=== PATIENT | female | born 1970 | race Caucasian/White ===

== ENCOUNTER → 2018-12-28 16:39 | Outpatient (CLI) | payer BC, SELFPAY ==
--- NOTE | 2018-12-28 16:59 | CT_ITS ---
We are attempting to reach FALGUNI VARELA NP to discuss findings. An addendum with communication details will be sent when the communication is complete. STUDY: CT ABDOMEN AND PELVIS WITH CONTRAST REASON FOR EXAM: Female, 48 years old. Epigastric pain. RADIATION DOSAGE (If Supplied By Facility): CTDIvol = ( 14.79 ) mGy, DLP = ( 840.85 ) mGycm TECHNIQUE: Transaxial images were obtained from the dome of the diaphragm to the symphysis pubis with oral contrast. Isovue 300 100ML IV/Oral was administered. Sagittal and coronal images were reconstructed. Individualized dose optimization techniques were used for this CT. COMPARISON: None. FINDINGS: The visualized lung bases are unremarkable. The visualized portions of the heart are within normal limits. Normal liver. Normal gallbladder and extrahepatic biliary system. Normal spleen. Normal pancreas. Normal bilateral adrenal glands. Normal right kidney. Normal left kidney. Normal visualized stomach. Normal small intestine. Normal colon. There is a tubular, thick-walled appendix (>7mm), consistent with acute appendicitis, series 2 images 80/124 through 84/124. There is a calcified appendicolith, series 2 image 81/124. Normal abdominal aorta. Normal inferior vena cava. Normal retroperitoneum. Normal urinary bladder. Normal visualized uterus. There are adnexal follicles. There is no free fluid in the abdomen or pelvis. Normal abdominal wall. Mild degenerative change of the spine. CT/Abdomen/Pelvis WITH Contrast IMPRESSION: Calcified appendicolith within mildly enlarged appendix consistent with acute appendicitis. No obstruction or abscess. Electronically Signed: Alexis Thurman MD at 20:06 EDT , Service support ,
== END ==
PROVIDERS: Family Provider Student in an Organized Health Care Education/Training Program; PCP Student in an Organized Health Care Education/Training Program
DX: R10.84 Generalized abdominal pain (principal)
CPT/HCPCS: 74177; Q9967

== ENCOUNTER 2018-12-28 20:18 | Observation (INO) | payer BC, SELFPAY ==
[2018-12-28 20:19] VITALS: BP 156/94; PULSE 77; RESP 18; TEMP 36.7; O2SAT 100; BMI 33.8
[2018-12-28] MEDS: Morphine 4 MG/ML Syringe IV (20:49)
[2018-12-28] MEDS: Ondansetron 4 MG/2 ML Vial IV (20:50)
[2018-12-28] MEDS: 0.9% Normal Saline 1,000 ML 1000 ML IV (20:50)
[2018-12-28 21:09] LABS: Absolute Lymphocyte Count 3.23 X10^3/ul (0.83-4.51); Basophil# 0.04 X10^3/uL; Basophil% 0.4 % (0-1); Eosinophil# 0.15 X10^3/uL; Eosinophils% 1.7 % (0-5); Hematocrit 30.6 % (37-47); Hemoglobin 9.5 g/dl (12.0-15.0); Lymphocyte # 3.23 X10^3/ul (4.0); Lymphocyte % 36.1 % (19-41); Mean Corpuscular Hgb 24.6 pg (27.0-32.0); Mean Corpuscular Volume 79.3 fL (81-99); Mean Platelet Vol. 8.8 fl (6.2-12.0); Monocyte# 0.48 X10^3/uL; Monocyte% 5.4 % (0-10); Neutrophil # 5.04 X10^3/uL (2.7-7.7); Neutrophil % 56.3 % (47-70); POSITIVE COUNT NO; POSITIVE DIFFERENTIAL NO; POSITIVE MORPHOLOGY NO; Platelet Count 241 K/mm3 (150-450); RBC Distribution Width CV 15.7 % (11.6-14.6); RBC Distribution Width SD 44.9 fl (35.1-43.9); Red Blood Count 3.86 M/mm3 (4.2-5.4)
[2018-12-28 21:26] LABS: ALB/GLOB Ratio 0.9 RATIO (0.9-2.4); AST(SGOT) 12 U/L (15-37); Alanine Aminotransfer ALT/SGPT 15 U/L (13-56); Albumin, Serum 3.4 g/dL (3.2-5.0); Alkaline Phosphatase 78 U/L (45-117); Anion Gap 5 (5-15); BUN 10 mg/dL (7-18); BUN/Creat Ratio 11.3 RATIO (10-20); Chloride 107 mmol/L (98-107); Creatinine, Serum 0.88 mg/dL (0.55-1.02); EST Glomerular Filtration Rate 72 mL/min (>60); Est Glom Filt Rate - Afr Amer 88 mL/min (>60); Estimated Creatinine Clearance 63.97 ml/min; Globulin 3.6 g/dL (2.2-4.2); Glucose 126 mg/dL (74-106); Lipase 108 U/L (73-393); Sodium Level 140 mmol/L (136-145)
--- NOTE | 2018-12-28 22:00 | ED.VISSUMM ---
- ER Visit Summary Date of Service: 12/28/18 Chief Complaint: Abdominal pain History of Present Illness: The patient is a [address] Romero. She reports that she has abdominal pain that began yesterday. It started in the epigastric region and is gradually moved down to her lower abdomen. She describes as a cramping pain is 10/10 at worst and 4-10 currently. Is worsened by movement and relieved by remaining still. Denies any nausea or vomiting. She reports she has had one episode of diarrhea, but this is after drinking the contrast for the CT scan. There was no blood in her stools or black tarry stools. No dysuria or frequency. She is on her menstrual period now. Patient was seen by a physician at [facility] and had a CT abdomen/pelvis with p.o. and IV contrast ordered. This showed that she had acute appendicitis and she was transferred to the emergency department. Physical Examination: Vitals: Stable. Afebrile. General: Well-nourished and well-developed. Head: Normocephalic atraumatic. Neck: Supple, no lymphadenopathy. No JVD. Nontender. Cardiovascular: Regular rate and rhythm. No murmurs. Respiratory: No respiratory distress. Clear to auscultation bilaterally. Abdominal: Soft, mild diffuse tenderness palpation moderate tenderness palpation in the right lower quadrant, nondistended, normal bowel sounds. No guarding, rebound, or peritoneal signs. Back: Nontender. Extremities: Nontender, no edema. Skin: Normal color, no rash. Neurologic: Alert and oriented ?3. Cranial nerves II through XII are intact. Normal strength and sensation. Psych: Normal affect. Test Results: CBC is remarkable for an H&H 9.5 and 30.6. Chem-7 shows a potassium 3.0 glucose 126. LFTs show an AST of 12. Lipase is normal. CT the abdomen pelvis with p.o. and IV contrast obtained prior to arrival shows a calcified appendicolith within a mildly enlarged appendix consistent with acute appendicitis. Emergency Department Course and Treatment: Patient reports that she ate approximately 45 minutes prior to coming in the emergency department. She was treated with Zofran, morphine, and Zosyn IV. She is resting comfortably. Treatment Plan: Patient was discussed with Dr. Almonte. Given the fact that she ate so recently she will be admitted to the hospital overnight and taken to the operating room in the morning. Patient understands this and is happy with this plan. Disposition: Admitted in stable condition peer Impression: 1. Appendicitis. This note was generated with NXE dictation software. It may contain incorrect words, spelling, and punctuation that were not noted in review of the chart prior to signing ED Disposition - Plan for ED Patient: Disposition: Acute Care Hospital [facility]
[2018-12-28 22:06] VITALS: BMI 33.1; BMI 33.2
[2018-12-28 22:25] VITALS: BP 127/69; PULSE 84; RESP 16; TEMP 36.6; O2SAT 97
[2018-12-28] MEDS: Lactated Ringers 1,000 ML 125 ML IV (22:31)
[2018-12-29] VITALS (11 sets, daily range): BP systolic 106–144; BP diastolic 64–79; PULSE 65–94; RESP 14–18; TEMP 36.4–37.1; O2SAT 97–100; BMI 33.1
[2018-12-29 04:24] LABS: Internal QC Validated? YES +Cl - CLEAR BKGD; Pregnancy, Urine Negative Negative
--- NOTE | 2018-12-29 05:56 | PCM.HP.BLA ---
History and Physical Date of Admission: 12/29/18 Chief Complaint: abdominal pain History of Present Illness: 48 y/o WF presents with abdominal pain. Complaint of generalized abdominal tenderness and bloating. Had pain beginning around Tuesday and then continuing and therefore presented to urgent care yesterday. Was sent to [facility] for abdominal CT scan, and found to have enlarged appendix. Was told to go to ED but on the way stopped at [employer] to eat. Presented to [facility] ED with complaint of above. Slight nausea, no emesis. Afebrile. Normal WBC with normal differential. CT scan - tubular thick walled appendix > 7mm with appendicolith Past Medical History: history of migraine headaches - but lessened in past few years Past Surgical History: Tonsillectomy Past Injuries: denies head injuries, denies history of fractures Medications: ibuprofen prn Allergies: axithromycin, cefdinir, cephalexin (all triggers migraines) Social history: TOB use denies Review of Systems: General - denies fevers, denies anorexia Cardiovascular denies chest pain, denies history of heart attack Pulmonary denies shortness of breath, denies coughing up blood Gastrointestinal as per HPI, denies blood in stools Neurological denies seizures,denies history of stroke Genitourinary denies burning with urination, denies blood in urine Hematological denies spontaneous\prolonged bleeding Skin denies open non healing wounds Musculoskeletal denies history of fractures Endocrine denies diabetes Psychological denies hallucinations Physical examination: Vital signs Temp 98.1F BP 156/94 HR 84 RR 16 General WD/WN WF in no apparent distress, alert and oriented, not septic appearing HEENT Normocephalic. EOM intact with sclera clear and no icterus noted. Neck is supple with no jugular venous distention noted. Trachea is midline. Lungs no labored breathing noted, such as retractions. No cough heard. Heart regular. Abdomen soft and patient states that she feels bloated throughout, tender in right lower quadrant with rebound, but also generalized tenderness, decreased bowel sounds Extremities no calf tenderness noted. No pitting edema noted. Genitourinary/Rectal deferred Skin normal skin integrity. Neurological non focal Psychological normal affect, patient is calm and appropriate Impression: enlarged appendix by CT scan Discussion/Plan: I have discussed the above with the patient. I have offered the patient the procedure of laparoscopic appendectomy I have explained the procedure to the patient. I have counseled the patient as to the risks of the procedure, including but not limited to: infection, bleeding, injury to any blood vessels/nerves, scar tissue, injury to any intrabdominal organs, injury to kidney/ureters, injury to bowel/bladder, intraabdominal abscess/bleeding, hernias at incisional sites, wound infections, possible open procedure, complications of anesthesia, postoperative pneumonia/cardiac problems/blood clots etc. the patient understands. The patient agrees to proceed I have answered all questions to the patient?s satisfaction and the patient has no further questions.
--- NOTE | 2018-12-29 05:59 | HP.PCM_ITS ---
History and Physical Date of Admission: 12/29/18 Chief Complaint: abdominal pain History of Present Illness: 48 y/o WF presents with abdominal pain. Complaint of generalized abdominal tenderness and bloating. Had pain beginning around Tuesday and then continuing and therefore presented to urgent care yesterday. Was sent to [facility] for abdominal CT scan, and found to have enlarged appendix. Was told to go to ED but on the way stopped at [employer] to eat. Presented to [facility] ED with complaint of above. Slight nausea, no emesis. Afebrile. Normal WBC with normal differential. CT scan - tubular thick walled appendix > 7mm with appendicolith Past Medical History: history of migraine headaches - but lessened in past few years Past Surgical History: Tonsillectomy Past Injuries: denies head injuries, denies history of fractures Medications: ibuprofen prn Allergies: axithromycin, cefdinir, cephalexin (all triggers migraines) Social history: TOB use denies Review of Systems: General - denies fevers, denies anorexia Cardiovascular denies chest pain, denies history of heart attack Pulmonary denies shortness of breath, denies coughing up blood Gastrointestinal as per HPI, denies blood in stools Neurological denies seizures,denies history of stroke Genitourinary denies burning with urination, denies blood in urine Hematological denies spontaneous\prolonged bleeding Skin denies open non healing wounds Musculoskeletal denies history of fractures Endocrine denies diabetes Psychological denies hallucinations Physical examination: Vital signs Temp 98.1F BP 156/94 HR 84 RR 16 General WD/WN WF in no apparent distress, alert and oriented, not septic appearing HEENT Normocephalic. EOM intact with sclera clear and no icterus noted. Neck is supple with no jugular venous distention noted. Trachea is midline. Lungs no labored breathing noted, such as retractions. No cough heard. Heart regular. Abdomen soft and patient states that she feels bloated throughout, tender in right lower quadrant with rebound, but also generalized tenderness, decreased bowel sounds Extremities no calf tenderness noted. No pitting edema noted. Genitourinary/Rectal deferred Skin normal skin integrity. Neurological non focal Psychological normal affect, patient is calm and appropriate Impression: enlarged appendix by CT scan Discussion/Plan: I have discussed the above with the patient. I have offered the patient the procedure of laparoscopic appendectomy I have explained the procedure to the patient. I have counseled the patient as to the risks of the procedure, including but not limited to: infection, bleeding, injury to any blood vessels/nerves, scar tissue, injury to any intrabdominal organs, injury to kidney/ureters, injury to bowel/bladder, intraabdominal abscess/bleeding, hernias at incisional sites, wound infections, possible open procedure, complications of anesthesia, postoperative pneumonia/cardiac problems/blood clots etc. the patient understands. The patient agrees to proceed I have answered all questions to the patient?s satisfaction and the patient has no further questions.
--- NOTE | 2018-12-29 06:00 | APP_PTH ---
PATIENT: ANDI BRANNON LOC: MS3 U#:[id number] AGE/SX: 48/F ROOM: MS309 RE12/28/[address]: Dr. Nadia Almonte MD : 1970 BED: 1 DIS: 12/30/2018 SPEC #: [id number] RECD: 12/29/18 07:32 STATUS: AMY REQ #: [id number] ANNALISE: 12/29/18 06:[address]: Nadia Almonte DEPT: SURGICAL PATHOLOGY RECD BY: Donovan Valentine ENTERED: 12/29/18 10:04 SP TYPE: APPENDIX OTHR DR: Dr. Brien Romero, Tissues: Appendix, NOS Procedures: Surgery Specimen Level III HEADER OPERATION: Laparoscopic appendectomy PRE-OP DIAGNOSIS: Abnormal abdominal pain, abnormal CT scan TISSUE SUBMITTED: Appendix MICROSCOPIC DIAGNOSIS Appendix, appendectomy: No evidence of appendicitis. AM:samina 01/02/19 MICROSCOPIC DESCRIPTION Slides are reviewed. GROSS DESCRIPTION Received is one container labeled with the patient's name and designated appendix. The specimen consists of a vermiform appendix measuring 4.5 cm in length and 0.7 cm in diameter. No gross perforations are evident. Serial sections reveal a patent lumen. Tar Worker sections are submitted in two cassettes. / AM:samina 12/29/18 TC:5 CPT: 82411
[2018-12-29] MEDS: Bupiv/Epi 0.25% 30 ML Vial (06:55)
--- NOTE | 2018-12-29 07:06 | OP.PCM_ITS ---
Report of Operation Date of Procedure: 12/29/18 Pre-Operative Diagnosis: abnormal appendix by CT scan, abdominal pain Post-Operative Diagnosis: blood in peritoneal cavity, presumed endometriosis, abnormal appendix Surgery/Procedure Performed:: laparoscopic appendectomy Description of Surgical Findings:: blood in peritoneal cavity mostly in the pelvis, noted to have ovarian cystic disease - possible ruptured ovarian cyst, possible endometrial deposits, distended abnormal appendix Type of Anesthesia:: General Anesthesiologist: Ken Reid Specimen's removed: appendix Estimated Blood Loss (mL): < 10 Fluids Replaced: 1100 ml RL Description of Procedure: After informed consent was obtained, the patient was brought into the operating room and placed in the supine position on the operating table. Appropriate time out protocol was followed. The patient was then placed under general anesthes ia. The patient?s abdomen was then prepped with a sterile surgical skin preparation and sterile surgical drapes were placed. The infraumbilical skin fold was grasped with penetrating clamps and the skin and subcutaneous tissues were infiltrated with 0.5% marcaine with epinephrine. A skin incision was then made. A Veress needle was then inserted into the intraabdominal cavity and checked to be in the proper position with a normal saline drop test. A CO2 pneumoperitoneum was then created. Once this was achieved, the Veress needle was removed and a 5 mm trocar was placed in its stead. A 5 mm laparoscope was then inserted into the trocar. Careful examination of the intraabdominal contents was then done. There was no evidence of injury to any internal organs from placement of the Veress needle or the trocar. Under direct visualization, a 12mm suprapubic trocar and a 5mm left lower quadrant trocar was then placed into the intraabdominal cavity. The skin and subcutaneous tissues at these sites were first infiltrated with 0.5% marcaine with epinephrine. Of note, there was old blood throughout the intraabdominal cavity noted. This seemed to emanate from the pelvis. Therefore careful attention was made to evaluate the gynecological organs. There was enlarged veins noted of the pelvis. There were ovarian cysts present. There was an area of the left ovary that seemed to be a sight of old bleeding, but no active bleeding was noted. There were small deposits that appeared to be endometriosis. There was scar tissue in the cul de sac. No signs of active bleeding was noted throughout the abdomen. Attention was then directed to the right lower quadrant. The appendix was visualized. The mesentery of the appendix was taken down by cauterizing the tissue from the free edge to the base of the appendix with the Harmonic scalpel. Once the base of the appendix was freed of surrounding tissues, then the linear gastrointestinal stapling device was brought into the abdominal cavity via the 12mm port and placed across the base of the appendix. The stapling device was fired, thus stapling across the base of the appendix and transecting it simultaneously. The appendix was then placed in an Endobag and this was brought out through the suprapubic trocar. The appendix was then forwarded to Pathology for analysis. The appendiceal stump was carefully examined. There was no evidence of any active bleeding or fecal leakage. The surrounding tissues were also examined and there was no evidence of any active bleeding or fecal/bile leakage. The intraabdominal cavity was examined and there was no evidence of further inflammation or tissue abnormality. Attention was directed to the stomach to rule out perforated ulcer - none was identified. There was no evidence of any peritoneal fluid. The CO2 pneumoperitoneum was released and all trocars were removed intact. The suprapubic fascia was reapproximated with a figure-of-8 vicryl suture. All skin incisions were reapproximated with monocryl suture. Cavilon and steristrips were applied to reinforce skin closure and proper sterile dressings were placed. The patient was then extubated and brought to the Recovery Room in stable condition. - Complications none noted - Admit VTE Documentation VTE Present on Admission: Yes VTE Mechan Device Prophylaxis: SCD's
--- NOTE | 2018-12-29 07:21 | PCM.DC.APPY ---
Discharge Diet: No Restrictions - avoid carbonated beverages for a couple of days drink plenty of fluids Discharge Activity: Return to Normal Activity, May not drive while taking narcotic pain medications. Lifting Restrictions: no lifting greater than 20 pounds for 2 weeks Additional Activity Instructions:: ambulation is encouraged Call your doctor if your incision/area has: Continuous Slow Oozing, Foul Smelling Discharge Call your doctor if you observe: Fever of 101 or Higher Additional Dressing/Incision Instructions:: Leave dressings intact. May get wet in shower. Do not soak - no tub baths/swimming Medications to take at Discharge Ibuprofen 400 mg PO PRN PRN 12/28/18 Magnesium 250 mg PO BID 12/28/18 Hydrocodone/Acetaminophen [[place] 5-325 Tablet] 1 ea PO Q8H PRN 5 Days #15 tab 12/29/18 Allergies/Adverse Reactions: Allergies azithromycin Adverse Reaction (Verified 12/28/18 20:24) Other cefdinir Adverse Reaction (Verified 12/28/18 20:24) Other cephalexin [From Keflex] Adverse Reaction (Verified 12/28/18 20:24) Other The following prescriptions were given: Hydrocodone/Acetaminophen [[place] 5-325 Tablet] 1 ea PO Q8H PRN 5 Days #15 tab PRN Reason: Mod-Severe Pain (4-10/10) Primary Care Physician: Brien Romero DO [Primary Care Provider] - Test Results: Test results from this visit will be discussed in further detail at your follow-up appointment, if applicable. Please Follow Up With: Nadia Almonte MD - call When: to be seen in a week, please call for date and time, thank you
--- NOTE | 2018-12-29 07:24 | DCINST_ITS ---
Discharge Diet: No Restrictions - avoid carbonated beverages for a couple of days drink plenty of fluids Discharge Activity: Return to Normal Activity, May not drive while taking narcotic pain medications. Lifting Restrictions: no lifting greater than 20 pounds for 2 weeks Additional Activity Instructions:: ambulation is encouraged Call your doctor if your incision/area has: Continuous Slow Oozing, Foul Smelling Discharge Call your doctor if you observe: Fever of 101 or Higher Additional Dressing/Incision Instructions:: Leave dressings intact. May get wet in shower. Do not soak - no tub baths/swimming Medications to take at Discharge Ibuprofen 400 mg PO PRN PRN 12/28/18 Magnesium 250 mg PO BID 12/28/18 Hydrocodone/Acetaminophen [[place] 5-325 Tablet] 1 ea PO Q8H PRN 5 Days #15 tab 12/29/18 Allergies/Adverse Reactions: Allergies azithromycin Adverse Reaction (Verified 12/28/18 20:24) Other cefdinir Adverse Reaction (Verified 12/28/18 20:24) Other cephalexin [From Keflex] Adverse Reaction (Verified 12/28/18 20:24) Other The following prescriptions were given: Hydrocodone/Acetaminophen [[place] 5-325 Tablet] 1 ea PO Q8H PRN 5 Days #15 tab PRN Reason: Mod-Severe Pain (4-10/10) Primary Care Physician: Brien Romero DO [Primary Care Provider] - Test Results: Test results from this visit will be discussed in further detail at your follow- up appointment, if applicable. Please Follow Up With: Nadia Almonte MD - call When: to be seen in a week, please call for date and time, thank you
--- NOTE | 2018-12-29 07:42 | PCA ---
PT IN OR
[2018-12-29] MEDS: Lactated Ringers 1,000 ML 125 ML IV ×2 (08:52→16:36)
[2018-12-29] MEDS: HYDROcodone Bitartrate/Apap 5/325 Tablet PO ×2 (10:50→14:50)
[2018-12-29] MEDS: Ondansetron 4 MG/2 ML Vial IV (14:48)
--- NOTE | 2018-12-29 19:50 | PCM.PN.SRG ---
Subjective: Patient is s/p laparoscopic appendectomy earlier this morning, Planned discharge later today, but when evaluated on my afternoon rounds, patient stated that she wanted to stay overnight - she felt too uncomfortable to go home - Physical Exam General: Alert, Oriented x3 Oral: Moist Mucosa Lungs: Normal air movement Abdomen: Soft - dressings intact Vital Signs Temp Pulse Resp BP Pulse Ox 98.1 F 77 16 116/75 100 12/29/18 16:19 12/29/18 16:19 12/29/18 16:19 12/29/18 16:19 12/29/18 16:19 Oxygen Flow Rate (L/min) 2 Oxygen Delivery Method Room Air Weight: 86.3 kg Body Mass Index (BMI) 33.1 Intake and Output for Last 24 Hours 12/27/18 12/28/18 12/29/18 23:59 23:59 23:59 Intake Total 4901 / 4901 Output Total 700 / 700 Balance 4201 / 4201 Laboratory Tests Past 24 Hrs 12/28/18 12/28/18 12/29/18 21:01 21:01 04:06 WBC 9.0 RBC 3.86 L Hgb 9.5 L Hct 30.6 L MCV 79.3 L MCH 24.6 L MCHC 31.0 L RDW 15.7 H RDW Differential 44.9 H Plt Count 241 MPV 8.8 Immature Gran % (Auto) 0.100 Neut % (Auto) 56.3 Lymph % (Auto) 36.1 [place] % (Auto) 5.4 Eos % (Auto) 1.7 Baso % (Auto) 0.4 Absolute Neuts (auto) 5.0 Absolute Lymphs (auto) 3.23 Total Counted Not Reportable Sodium 140 Potassium 3.0 L Chloride 107 Carbon Dioxide 28.0 Anion Gap 5 BUN 10 Creatinine 0.88 Estim Creat Clear Calc 63.97 Est GFR (MDRD) Af Amer 88 Est GFR (MDRD) Non-Af 72 BUN/Creatinine Ratio 11.3 Glucose 126 H Calcium 8.0 L Total Bilirubin 0.20 AST 12 L ALT 15 Alkaline Phosphatase 78 Total Protein 7.0 Albumin 3.4 Globulin 3.6 Albumin/Globulin Ratio 0.9 Lipase 108 Urine Test Negative Medical Necessity - Tobacco Use Smoking Status: Never smoker Assessment/Plan Impression: day of surgery - laparoscopic appendectomy Plan: discharge tomorrow I have encouraged patient ambulation and told her to walk in the hallways several times this evening.
[2018-12-30] MEDS: Lactated Ringers 1,000 ML 125 ML IV (01:14)
[2018-12-30] MEDS: HYDROcodone Bitartrate/Apap 5/325 Tablet PO (05:18)
[2018-12-30 05:21] VITALS: BP 124/69; PULSE 76; RESP 16; TEMP 37.1; O2SAT 95
[2018-12-30 08:14] VITALS: BP 136/78; PULSE 75; RESP 18; TEMP 36.7; O2SAT 100
== END 2018-12-30 08:45 | disposition home or self-care (01) ==
LOC: ED 20:46 → MS3 21:04
PROVIDERS: Anesthesiology; Admitting Provider Surgery; Emergency Provider Emergency Medicine; Family Provider Student in an Organized Health Care Education/Training Program; PCP Student in an Organized Health Care Education/Training Program; Visit Provider Surgery
PROC: 0DTJ4ZZ Resection of Appendix, Percutaneous Endoscopic Approach (ICD-10-PCS; CPT 44970; principal; 2018-12-29 06:00)
DX: R10.9 Unspecified abdominal pain (principal); R94.8 Abnormal results of function studies of other organs and systems; N83.202 Unspecified ovarian cyst, left side; N83.201 Unspecified ovarian cyst, right side; N80.3 Endometriosis of pelvic peritoneum
CPT/HCPCS: 00840; 44970; 74177; 80053; 81025; 83690; 85025; 88304; 96361; 96365; 96375; 96376; 99218; 99282; J7030; J7120; Q9967; G0378; J2405

== ENCOUNTER → 2019-01-10 14:38 | Outpatient (CLI) | payer BC, SELFPAY ==
[2018-12-29 05:10] VITALS: BMI 33.1
--- NOTE | 2019-01-10 14:40 | BI_ITS ---
MAMMOGRAPHY - BILATERAL SCREENING REASON FOR EXAM: Female, 48 years old. Routine annual screening examination. PERTINENT HISTORY: Non-contributory. TECHNIQUE: Digital bilateral breast yue (3D mammographic acquisition) in the CC and MLO projections. 2-D mediolateral oblique (MLO) and craniocaudad (CC) views of both breasts were obtained. CAD: Full Field Digital Mammography with Computer Added Detection was performed. COMPARISON: Comparison is made with prior study dated March 02, 2017 and December 26, 2015. FINDINGS: Breast Composition: The breasts are heterogeneously dense, which may obscure small masses. There are no dominant masses or suspicious calcifications. No other significant abnormalities are identified. There has been no significant change since the prior study. BI/SCREENING MAMM (CAD), BILAT IMPRESSION: Stable bilateral screening mammogram. Yearly follow-up mammogram recommended. (A) ASSESSMENT CATEGORY: BIRADS Category 1: Negative. A letter regarding these results will be sent to the patient by the facility within 30 days. Approximately 10% of breast cancers are not detected by mammography. A normal mammogram should not delay biopsy of a clinically suspicious abnormality. [id number] Electronically Signed: Ashvin Galdamez, at 7:55 EDT , Service support ,
== END ==
PROVIDERS: Family Provider Student in an Organized Health Care Education/Training Program; PCP Student in an Organized Health Care Education/Training Program; Referring Provider Student in an Organized Health Care Education/Training Program; Visit Provider Student in an Organized Health Care Education/Training Program
DX: Z12.31 Encounter for screening mammogram for malignant neoplasm of breast (principal)
CPT/HCPCS: 77063; 77067

== ENCOUNTER → 2020-12-12 08:23 | Outpatient (CLI) | payer BC, SELFPAY ==
[2018-12-29 05:10] VITALS: BMI 33.1
--- NOTE | 2020-12-12 08:51 | BI_ITS ---
MAMMOGRAPHY - BILATERAL SCREENING REASON FOR EXAM: Female, 49 years old. Routine annual screening examination. PERTINENT HISTORY: Non-contributory. TECHNIQUE: Digital bilateral breast chun (3D mammographic acquisition) in the CC and MLO projections. 2-D mediolateral oblique (MLO) and craniocaudad (CC) views of both breasts were obtained. CAD: Full Field Digital Mammography with Computer Added Detection was performed. COMPARISON: Comparison is made with prior study dated 01/10/2019 and 03/02/2017. FINDINGS: Breast Composition: The breasts are heterogeneously dense, which may obscure small masses. There are no dominant masses or suspicious calcifications. Stable benign-appearing bilateral axillary lymph nodes. No other significant abnormalities are identified. There has been no significant change since the prior study. BI/SCRN MAMM (CAD)W/CHUN BILAT IMPRESSION: Stable bilateral screening mammogram. Yearly follow-up mammogram recommended. (A) ASSESSMENT CATEGORY: BIRADS Category 2: Benign. A letter regarding these results will be sent to the patient by the facility within 30 days. Approximately 10% of breast cancers are not detected by mammography. A normal mammogram should not delay biopsy of a clinically suspicious abnormality. [id number] Electronically Signed: Ashvin Galdamez MD at 9:51 EST , Service support ,
== END ==
PROVIDERS: PCP Student in an Organized Health Care Education/Training Program; Referring Provider Student in an Organized Health Care Education/Training Program; Visit Provider Student in an Organized Health Care Education/Training Program
DX: Z12.31 Encounter for screening mammogram for malignant neoplasm of breast (principal)
CPT/HCPCS: 77063; 77067

== ENCOUNTER → 2020-12-12 13:17 | Outpatient (CLI) | payer BC, SELFPAY ==
[2018-12-29 05:10] VITALS: BMI 33.1
[2020-12-17 11:08] LABS: HPV APTIMA, High Risk Negative (Negative)
== END ==
PROVIDERS: PCP Student in an Organized Health Care Education/Training Program; Visit Provider Student in an Organized Health Care Education/Training Program
DX: Z12.4 Encounter for screening for malignant neoplasm of cervix (principal)
CPT/HCPCS: 87624; 88175; G0145

== ENCOUNTER → 2021-08-11 14:59 | Outpatient (CLI) | payer BC, SELFPAY ==
[2021-08-11 17:10] LABS: Hematocrit 27.2 % (37-47); Hemoglobin 8.8 g/dL (12.0-15.0); Mean Corp Hgb Conc 32.4 g/dL (32-36); Mean Corpuscular Volume 86.6 fL (81-99); Platelet Count 269 K/mm3 (150-450); RBC Distribution Width CV 14.1 % (11.6-14.6); RBC Distribution Width SD 43.6 fl (35.1-43.9); Red Blood Count 3.14 M/mm3 (4.2-5.4); White Blood Count 7.7 K/mm3 (4.4-11.0)
[2021-08-11 17:31] LABS: Follicle Stimulating Hormone 8.2 mIU/mL; Luteinizing Hormone 2.6 mIU/mL; T4 Free Direct 0.89 ng/dL (0.76-1.46); Thyroid Stim Hormone (TSH) 1.84 uIU/mL (0.358-3.74)
== END ==
PROVIDERS: PCP Student in an Organized Health Care Education/Training Program; Visit Provider Student in an Organized Health Care Education/Training Program
DX: N93.9 Abnormal uterine and vaginal bleeding, unspecified (principal)
CPT/HCPCS: 36415; 83001; 83002; 84439; 84443; 85027

== ENCOUNTER → 2021-09-21 15:10 | Outpatient (CLI) | payer BC, SELFPAY | PROVIDERS: PCP Student in an Organized Health Care Education/Training Program; Visit Provider Student in an Organized Health Care Education/Training Program | DX: Z03.818 Encounter for observation for suspected exposure to other biological agents ruled out (principal) | CPT/HCPCS: 87635; U0005; U0003 ==

== ENCOUNTER 2021-09-24 05:49 | Day surgery (SDC) | payer BC, SELFPAY ==
[2021-09-21 16:16] LABS: Hemoglobin 8.7 g/dL (12.0-15.0); Mean Corpuscular Hgb 26.1 pg (27.0-32.0); Mean Corpuscular Volume 87.1 fL (81-99); Mean Platelet Vol. 10.3 fl (6.2-12.0); Platelet Count 347 K/mm3 (150-450); RBC Distribution Width CV 13.5 % (11.6-14.6); Red Blood Count 3.33 M/mm3 (4.2-5.4); White Blood Count 7.2 K/mm3 (4.4-11.0)
--- NOTE | 2021-09-23 | EMB_PTH ---
PATIENT: ANDI BRANNON LOC: [facility] [place] U#:[id number] AGE/SX: 50/F ROOM: RE09/24/[address]: Dr. Ofelia Tai DO : 1970 BED: DIS: 09/24/2021 SPEC #: [id number] RECD: 09/24/21 08:05 STATUS: AMY REHuy #: [id number] ANNALISE: 09/23/21 00:[address]: Ofelia Tai DEPT: SURGICAL PATHOLOGY RECD BY: Riccardo Garcia ENTERED: 09/24/21 10:31 SP TYPE: ENDOM BX/C TON DR: Dr. 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 Weakly to inactive mildly dyssynchronous endometrium. AM:samina 09/25/2021 MICROSCOPIC DESCRIPTION Slides are reviewed. GROSS DESCRIPTION Received in fixative is one container labeled with the patient's name and designated endometrial curettings. The specimen consists of multiple irregular fragments of red-carlos soft tissue that in aggregate measure 2.2 x 2 x 0.2 cm. The specimen is totally submitted in one cassette. / AM:samina 09/24/21 TC:5 [facility]: [id number]
[2021-09-24] VITALS (10 sets, daily range): BP systolic 111–125; BP diastolic 67–81; PULSE 65–87; RESP 16–18; TEMP 36.2–36.7; O2SAT 91–99; BMI 34.7
[2021-09-24 06:33] LABS: Internal QC Validated? YES +Cl - CLEAR BKGD; Pregnancy, Urine Negative Negative
[2021-09-24] MEDS: Lactated Ringers 1,000 ML 15 ML IV (06:52)
--- NOTE | 2021-09-24 07:13 | PCM.HP.BLA ---
History and Physical Date of Admission: 09/24/21 HISTORY OF PRESENT ILLNESS: On 09/21/2021, Brea Sauceda, a 50 year old female 1 0 1 0 1, presented for: hysteroscopy dilation and curettage for abnormal uterine bleeding. Reports bleeding daily for several months. Not controlled with medications MEDICAL HISTORY: Denies ALLERGIES: unknown med, Azithromycin, H/a, Keflex, Headache, Cefdinir, H/a, Azithromycin, Headache, Cefdinir, Headache, Keflex and Headache MEDICATIONS HISTORY: Vitamin C 250 mg tablet Medroxyprogesterone SURGICAL HISTORY: 1. tonsillectomy 1979 2. 12/29/[address] Almonte MENSTRUAL HISTORY: LMP Known?- DefiniteAmount/Duration - 7 days, Regularity - Regular, Frequency - monthly days, LMP - 08/30/21, Age Onset Menarche - 13 PAST PREGNANCIES: Total Pregnancies - 2; Full Term Pregnancies - 1; Premature - 0; Abortions, Induced - 0; Abortions, Spontaneous - 1; Ectopics - 0; Multiple Births - 0; Living Children - 1 FAMILY HISTORY: Noncontributory SOCIAL HISTORY: Alcohol Use - RARELY Smoking - used to smoke but quit and 2008 Drug Use - denies REVIEW OF SYSTEMS: GENERAL - Denies fever, or chills SKIN - hemorrhoids present EYES - Denies visual changes EARS - Denies difficulty hearing NOSE - Denies nasal congestion or bleeding MOUTH - Denies sore throat or difficulty swallowing NECK - Denies pain or swelling RESPIRATORY - Denies shortness of breath or wheezing CARDIOVASCULAR - Denies palpitations or chest pain GASTROINTESTINAL - Bloating feels better since last visit GENITOURINARY - Denies dysuria, frequency of urination, incontinence of urine MUSCULOSKELETAL - Denies joint or muscle pain NEUROLOGICAL - Denies localized numbness or weakness PSYCHIATRIC - Denies depression or anxiety ENDOCRINE - heavy, irregular menses HEMATO-IMMUNOLOGIC - Denies excsesive bleeding with cuts CONSTITUTIONAL - NAD, well nourished, and well developed SKIN - No rash, lesions, or ulcers HEENT - Normocephalic, PERRLA, EOMI LUNGS - clear to auscultation bilaterally CARDIAC - RRR EXTREMITIES - No edema or calf tenderness NEUROLOGICAL - Cranial nerves II-XII grossly intact PSYCHIATRIC - A and O to time, place, person, mood and affect ASSESSMENT: 1. Routine Gynecologic Exam no abnormal findings PLAN BY DIAGNOSIS: 1. Abnormal Uterine And Vaginal Bleeding, Unspecified and Metrorrhagia Heavy prolonged bleeding over the past few months. Is getting exhausted from constant pad wearing. Labs were within normal limits aside from anemia with hemoglobin of 8.8 Ultrasound showed thickened endometrial lining. Bleeding has stopped after Provera use initially, has not stopped with use a second time. Has improved. Planned for hysteroscopy dilation and curettage for evaluation of endometrial cavity. R/B/A discussed. Risks include, but are not limited to: risk of bleeding to the point of transfusion, infection, injury to surrounding tissue (bowel/bladder/uterine perforation), VTE, ICU admission. Pt aware and consented. Assessment & Plan Assessment/Plan (1) Abnormal uterine bleeding: (2) Iron deficiency anemia secondary to blood loss (chronic):
--- NOTE | 2021-09-24 07:25 | PCM.OPRPT ---
Report of Operation Date of Procedure: 09/24/21 Pre-Operative Diagnosis: Abnormal uterine bleeding Post-Operative Diagnosis: Abnormal uterine bleeding Surgery/Procedure Performed:: Hysteroscopy, Dilation and Curettage Description of Surgical Findings:: Normal-appearing external genitalia. Fluffy endometrial lining on hysteroscopy. Type of Anesthesia: MAC Specimen's removed: Endometrial curettings Estimated Blood Loss (mL): 5 cc Fluids Replaced: 400 cc Description of Procedure: Patient taken to the operating room, MAC anesthesia induced. Patient placed in the dorsal lithotomy position prepped and draped in the usual sterile fashion. Weighted speculum placed in the posterior vagina and Cruz retractor used to visualize the cervix. Anterior lip of the cervix grasped with Allis clamps. Cervix sequentially dilated. Hysteroscope placed through cervical canal and inspection of endometrial cavity completed in a 360 degree manner with above findings. Hysteroscope removed. Endometrial curettage completed in a 360 degree manner. Allis clamp removed. Cervix hemostatic. Weighted speculum removed. At the end of the procedure all needle, lap, sponge counts were correct. Complications None
--- NOTE | 2021-09-24 07:28 | PCM.DC ---
Discharge Instructions Diet Discharge Diet: No restrictions Activity Discharge Activity: Return to Normal Activity and May Shower May resume sexual activity in: 2 weeks Weight Bearing Status: Weight bearing as tolerated Lifting Restrictions: None Dressing / Incision Call your doctor if you observe: Fever of 101 or Higher, Change in Color, Inability to urinate, Using more than 1 pad per hour, Shortness of breath, Dizziness, Swelling in the ankles, Chest pain and Calf discomfort Follow Up Care Please Follow Up With: Ofelia Tai DO When: 1-2 week post operative visit Test Results: Test results from this visit will be discussed in further detail at your follow-up appointment, if applicable. Discharge Plan Admission Primary Reason for Your Visit: Hysteroscopy, Dilation and Curettage Attending Provider: Ofelia Tai Primary Care Provider: Brien Romero Discharge Orders/Prescriptions Prescriptions: Continued magnesium 250 MG tablet 250 mg PO DAILY RF: 0 ascorbic acid (vitamin C) [Vitamin C] 500 mg Capsule, Extended Release 500 mg PO Q12H RF: 0 pedi multivit 17-iron fumarate 15 mg iron Tablet,Chewable 1 tab PO DAILY RF: 0 Discontinued medroxyprogesterone 10 mg Tablet 15 mg PO DAILY RF: 0 Referrals / Follow Up: Brien Romero DO [Primary Care Provider] - Disposition Disposition (needs filled in before D/C Order can be placed): Home, Self Care
== END 2021-09-24 10:10 | disposition home or self-care (01) ==
LOC: SDC 05:51 → AC 05:51
PROVIDERS: Anesthesiology; PCP Student in an Organized Health Care Education/Training Program; Referring Provider Student in an Organized Health Care Education/Training Program; Visit Provider Student in an Organized Health Care Education/Training Program
PROC: 0UDB8ZZ Extraction of Endometrium, Via Natural or Artificial Opening Endoscopic (ICD-10-PCS; CPT 58558; principal; 2021-09-24 07:20)
DX: N93.9 Abnormal uterine and vaginal bleeding, unspecified (principal); Z87.891 Personal history of nicotine dependence; D50.0 Iron deficiency anemia secondary to blood loss (chronic)
CPT/HCPCS: 58558; 36415; 81025; 85027; 86850; 86900; 86901; 88305; J7120; J2405

== ENCOUNTER 2021-12-10 05:22 | Day surgery (SDC) | payer BC, SELFPAY ==
--- NOTE | 2021-12-07 10:15 | EKG12_ITS ---
Test Reason : PRE OP Blood Pressure : / mmHG Vent. Rate : 063 BPM Atrial Rate : 063 BPM P-R Int : 164 ms QRS Dur : 076 ms QT Int : 414 ms P-R-T Axes : 047 025 043 degrees QTc Int : 423 ms Normal sinus rhythm Low voltage QRS Borderline ECG Confirmed by JEREMÍAS SAXENA, FRANK ([id number]), graphic editor DELMY BAIRES ([id number]) on 12/08/2021 11:15:50 AM Referred By: Ofelia Tai Confirmed By:FRANK VERONICA MD
[2021-12-07 11:45] LABS: Hematocrit 34.4 % (37-47); Hemoglobin 10.7 g/dL (12.0-15.0); Mean Corp Hgb Conc 31.1 g/dL (32-36); Mean Corpuscular Hgb 26.7 pg (27.0-32.0); Mean Corpuscular Volume 85.8 fL (81-99); Mean Platelet Vol. 10.3 fl (6.2-12.0); Platelet Count 260 K/mm3 (150-450); RBC Distribution Width CV 15.9 % (11.6-14.6); RBC Distribution Width SD 49.4 fl (35.1-43.9); Red Blood Count 4.01 M/mm3 (4.2-5.4); White Blood Count 5.9 K/mm3 (4.4-11.0)
[2021-12-07 11:47] LABS: Magnesium 2.4 mg/dL (1.6-2.6)
[2021-12-10 06:01] LABS: Internal QC Validated? YES +Cl - CLEAR BKGD; Pregnancy, Urine Negative Negative
[2021-12-10 06:16] VITALS: BP 126/71; PULSE 76; RESP 18; TEMP 37.2; O2SAT 99; BMI 34.9
[2021-12-10] MEDS: Gabapentin 600 MG Tablet PO (06:27)
[2021-12-10] MEDS: Celecoxib 200 MG Capsule 400 MG PO (06:27)
[2021-12-10] MEDS: Acetaminophen 500 MG Tablet 1000 MG PO (06:27)
[2021-12-10] MEDS: Lactated Ringers 1,000 ML 15 ML IV (06:28)
[2021-12-10 06:41] LABS: Bedside Glucose 89 mg/dL (74-106)
--- NOTE | 2021-12-10 07:10 | PCM.HP.OB ---
HPI - General HPI Narrative ANDI BRANNON, is a 50 F who presents for total laparoscopic hysterectomy, bilateral salpingectomy, cystoscopy for abnormal uterine bleeding and menorrhagia. Patient is anemic secondary to menorrhagia. She has trialed progesterone which is not managed her bleeding. PFSH PFS Medical History Alcohol use Anemia Back pain Blackout Migraine headache Non-smoker Restless legs Shortness of breath on exertion Home Medications magnesium 250 mg PO BID 12/28/18 [History Last Taken 12/28/18] ascorbic acid (vitamin C) [Vitamin C] 500 mg PO BID 09/16/21 [History Last Taken Unknown] pedi multivit 17-iron fumarate 1 tab PO DAILY 09/16/21 [History Last Taken Unknown] Allergy/AdvReac Type Severity Reaction Status Date / Time azithromycin AdvReac Other Verified 12/10/21 06:15 cefdinir AdvReac Other Verified 12/10/21 06:15 cephalexin [From Keflex] AdvReac Other Verified 12/10/21 06:15 Surgical History History of hysteroscopy History of tonsillectomy and adenoidectomy Hx of appendectomy Hx of wisdom tooth extraction Social History (Updated 12/10/21 @ 07:[address] Ofelia Tai, DO) Smoking Status: Never smoker substance use type: does not use ROS Constitutional Constitutional: Denies change in weight, fatigue or fever(s) Eyes Eyes: Denies change in vision ENT HEENT: Denies headache(s) or loss taste/smell Cardiovascular Cardiovascular: Denies chest pain, dyspnea, lightheadedness, palpitations or syncope Respiratory/Chest Respiratory/Chest: Denies cough or dyspnea Gastrointestinal Gastrointestinal: Denies abdominal pain or bloating Genitourinary Genitourinary: Denies burning urination Musculoskeletal Musculoskeletal: Denies back pain Neurologic Neurologic: Denies confusion or headache(s) Psychiatric Psychiatric: Denies behavioral changes Endocrine Endocrinology: Denies cold intolerance or heat intolerance Hematologic/Lymphatic Hematologic/Lymphatic: Reports anemia Vital Signs Vital Signs Vital Signs: 12/10/21 06:16 Temperature 98.9 F Temperature Source Temporal Pulse Rate 76 Respiratory Rate 18 Respiratory Pattern Normal Blood Pressure 126/71 H Blood Pressure Mean 89 Blood Pressure Source Monitor Blood Pressure Position Semi-Fowlers Blood Pressure Location Right Arm Pulse Ox 99 Oxygen Delivery Method Room Air Weight Weight: 89.4 kg Body Mass Index (BMI) 34.9 Physical Exam Const alert, oriented x3 and no apparent distress HEENT normocephalic Head and Scalp: atraumatic Eyes PERRL Neck full ROM Resp normal respiratory effort and clear to auscultation bilaterally Cardio regular rate and regular rhythm GI normal to inspection, nondistended, normoactive bowel sounds Extremity normal to inspection Skin no rashes or lesions noted Neuro no focal motor deficits and no sensory deficits noted Labs Labs Labs: Blood Type A POSITIVE Antibody Screen NEGATIVE Hct 34.4 % (37-47) L Hgb 10.7 g/dL (12.0-15.0) L Assessment & Plan (1) Abnormal uterine bleeding: PLAN: 50-year-old female plan for total laparoscopic hysterectomy, bilateral salpingectomy, cystoscopy for abnormal uterine bleeding and menorrhagia. (2) Iron deficiency anemia secondary to blood loss (chronic):
--- NOTE | 2021-12-10 07:14 | OP.PCM_ITS ---
Report of Operation Date of Procedure: 12/10/21 Pre-Operative Diagnosis: Abnormal uterine bleeding, menorrhagia, blood loss ane catina Post-Operative Diagnosis: Abnormal uterine bleeding, menorrhagia, blood loss anemia Surgery/Procedure Performed:: Total laparoscopic hysterectomy, bilateral salpingectomy, cystoscopy, adhesiolysis. Description of Surgical Findings:: Normal-appearing external genitalia. Medium uterine descensus. Left: Adhesions to the left pelvic sidewall. Left ovary adhesed also to left pelvic sidewall and bowel. Suspected adenomyosis. Type of Anesthesia: General Specimen's removed: Uterus, cervix, bilateral fallopian tubes Estimated Blood Loss (mL): 150cc Fluids Replaced: 1800cc Description of Procedure: Indication/risk/benefits: 50-year-old female with abnormal uterine bleeding and menorrhagia plan for total laparoscopic hysterectomy, bilateral salpingectomy, cystoscopy. All risk, benefits, alternatives discussed with the patient. Risks include but are not limited to: Risk of bleeding to the point of transfusion, infection, injury to surrounding tissue including bowel/bladder/major abdominal vessels potentially requiring Tate catheter use, VTE, ICU admission, laparotomy. Patient aware and consented. Procedure: Patient taken to the operating room and placed under general anesthesia. Patient placed in the dorsal lithotomy position and prepped and draped in the usual sterile fashion. Tate catheter placed. Weighted speculum placed in the posterior vagina, and Cruz retractor used to visualize cervix. Anterior lip of the cervix grasped with single-tooth tenaculum. Cervix sequentially dilated. Uterus sounded to 12 cm. 2 [id number] stitches placed at 3 and 9 o'clock position on the cervix. Medium manipulator placed. Gloves changed and attention turned to anterior abdominal wall. Vertical incision made superior to umbilicus, underlying subcutaneous tissue bluntly dissected off of fascia. Fascia grasped with 2 Reji clamps. Fascia incised medially with Andersen scissors. Peritoneum entered. Superior and inferior edge of the fascia tagged with suture. Trocar placed. Abdomen insufflated. Right and left trochars placed under direct visualization. Visualization of the abdominal cavity completed, noting above findings of adhesions. Unable to visualize left ureter due to bowel and ovarian adhesions. Adhesiolysis was completed on the left pelvic sidewall. This was completed using sharp dissection with scissors as well as blunt dissection.Colon released from the left pelvic sidewall with sharp dissection. Dissected left fallopian tube away from ovary and colon using scissors. Bowel dissected away from the left ovary using scissors and blunt dissection. Left fallopian tube grasped and mesosalpinx incised using coagulation and cut. Left round ligament incised using coagulation and monopolar cautery. Vesicouterine peritoneum identified and bladder flap started on left side carried towards midline. Dissection carried down left side of the uterus starting at the utero ovarian ligament using coagulation and cut. This was carried down towards the uterine arteries which were coagulated and cut. Attention then turned to the right side. Right ureter identified. Right fallopian tube grasped mesosalpinx coagulated and cut towards the cornua. Right round ligament incised with cautery. This was carried down towards the vesicouterine peritoneum and bladder flap extending towards midline. Right utero-ovarian ligament coagulated and cut. Dissection further carried down towards the level of the right uterine arteries. Right uterine arteries coagulated and cut. Allowing them to fall away from the colpotomy cup. Further dissection of the bladder away from the anterior cervix and colpotomy cup was completed with cautery and blunt dissection. This allowed the bladder to fall away from the anterior cervix. Uterus anteverted and posterior colpotomy started. Uterus retroverted and anterior colpotomy started, joining posteriorly, and continuing in a counterclockwise manner. Colpotomy was then completed fully in a 360 degree manner. Uterus cervix and bilateral fallopian tubes removed through the vagina. Abdomen desufflated and attention turned to the vagina. Vaginal cuff grasped with Allis clamps. Vaginal cuff then closed with a running locking stitch starting at right and left apices, being tied at midline. Vagina irrigated. Cystoscopy completed noting intact bladder dome and bilateral ureteral jets. Cystoscope removed. Attention then returned to the anterior abdominal wall after gloves were changed. Abdomen insufflated. Pelvis suction irrigated. No active bleeding noted. Kelley placed at the vaginal cuff. Abdomen desufflated and trochars removed. Fascia of the supraumbilical incision closed with a running stitch. Skin closed with subcuticular stitch and skin glue. At the end of the procedure all needle, lap, sponge counts were correct x3. UOP: 150cc Complications None
--- NOTE | 2021-12-10 07:30 | HYST_PTH ---
PATIENT: ANDI BRANNON LOC: [facility] – [place] U#:[id number] AGE/SX: 50/F ROOM: RE12/10/[address]: Dr. Ofelia Tai DO : 1970 BED: DIS: 12/10/2021 SPEC #: [id number] RECD: 12/10/21 13:56 STATUS: AMY RE #: [id number] ANNALISE: 12/10/21 07:[address]: Ofelia Tai DEPT: SURGICAL PATHOLOGY RECD BY: Eloisa Mcgrath ENTERED: 12/11/21 09:36 SP TYPE: HYSTERECT OTHR DR: Dr. Brien Romero DO Tissues: Uterus, NOS Procedures: Surgery Specimen Level V HEADER OPERATION: ERAS, hysterectomy, TLH, salpingectomy, cysto PRE-OP DIAGNOSIS: Abnormal uterine bleeding, menorrhagia, blood loss anemia TISSUE SUBMITTED: Cervix, uterus, bilateral fallopian tubes MICROSCOPIC DIAGNOSIS Cervix, uterus, bilateral fallopian tubes, hysterectomy and bilateral salpingectomy: Cervix ? chronic inflammation. Endometrium ? secretory endometrium. Myometrium ? intramural leiomyomas (largest measuring 1.5 cm in greatest dimension). - Adenomyosis. Right fallopian tube ? endometriosis. Left fallopian tube - no pathologic diagnosis. Left paratubal cyst with adjacent endometriosis. SJ:rg 12/14/2021 COMMENT Please make reference to previous specimen ([id number]) endometrium, curettings with diagnosis of ?benign stromal hyperplasia, consistent with exogenous hormone effect with degenerative changes and weakly to inactive mildly dyssynchronous endometrium.? MICROSCOPIC DESCRIPTION Slides are reviewed. GROSS DESCRIPTION Received in fixative is one container labeled with the patient's name and designated cervix, uterus, bilateral fallopian tubes. The specimen consists of a hysterectomy specimen consisting of uterus with cervix and attached bilateral fallopian tubes. The uterus with cervix weighs 229 gm and measures 12.5 x 9 x 7 cm. The ectocervical mucosa is focally eroded. The external os is oval and patulous in contour. The endocervical canal measures 3.5 cm in length. The endocervical mucosa is carlos, glistening and unremarkable. The triangular endometrial cavity measures 6 cm in length and up to 3.5 cm in width. The endometrium measures up to 0.3 cm in thickness. Sections of the uterine wall reveal multiple intramural masses. The largest mass measures 1.5 cm in greatest dimension. Sections of these masses reveal carlos whorled cut surfaces without areas of hemorrhage, necrosis or cystic degeneration. Sections of the uterine wall also reveal trabeculated cut surfaces suspicious for adenomyosis. The uterine wall measures up to 3.5 cm in thickness. The right fallopian tube measures 5 cm in length and up to 1 cm in diameter. The fimbrial end is identified. Sections reveal unremarkable cut surfaces. The left fallopian tube is similar appearance to right and measures 7.5 cm in length and 1 cm in diameter. A paratubal cyst is also noted measuring 0.5 cm in greatest dimension. Vibrating Screen Operator sections are submitted in nine cassettes as follows: 1 - anterior cervix, 2 - posterior cervix, 3 & 4 - anterior uterine wall, intramural nodular masses, 57 - posterior uterine wall, 8 - right fallopian tube, 9 - left fallopian tube and paratubal cyst. / ADRIEL:samina 12/11/2021 TC:5 CPT: 40344
[2021-12-10] MEDS: Cefazolin 2 GM in 0.9% Normal Saline 100 ML IV (07:33)
--- NOTE | 2021-12-10 10:26 | DCINST_ITS ---
Discharge Instructions Diet Discharge Diet: No restrictions Activity Discharge Activity: Return to Normal Activity and May Shower May resume sexual activity in: 6-8 weeks Weight Bearing Status: Weight bearing as tolerated Lifting Restrictions: 25 pounds Dressing / Incision Call your doctor if your incision/area has: Continuous Slow Oozing, Sudden Increased Bleeding, Increased Pain/ Swelling, Increased Redness, Foul Smelling Discharge and Swelling at the incision site Call your doctor if you observe: Fever of 101 or Higher, Change in Color, Inability to urinate, Using more than 1 pad per hour, Shortness of breath, Dizziness and Chest pain Cleanse incision/area with: Soap & Water Follow Up Care Please Follow Up With: Ofelia Tai DO When: 2 week post operative visit Test Results: Test results from this visit will be discussed in further detail at your follow-up appointment, if applicable. Discharge Plan Admission Primary Reason for Your Visit: Hysterectomy Attending Provider: Ofelia Tai Primary Care Provider: Brien Romero Discharge Orders/Prescriptions Prescriptions: New oxycodone 5 mg tablet 5 mg PO Q6H PRN (Reason: pain (scale score 7-10)) 5 Days Qty: 24 RF: 0 Continued magnesium 250 MG tablet 250 mg PO BID RF: 0 ascorbic acid (vitamin C) [Vitamin C] 500 mg Capsule, Extended Release 500 mg PO BID RF: 0 pedi multivit 17-iron fumarate 15 mg iron Tablet,Chewable 1 tab PO DAILY RF: 0 Other Ambulatory Orders: ,Urine (Routine) Timeframe: 20211210 Facility: [facility] - Location: Laboratory Ordered By: Dr. Gaurav Martinez Referrals / Follow Up: Brien Romero DO [Primary Care Provider] - Disposition Disposition (needs filled in before D/C Order can be placed): Home, Self Care
[2021-12-10 11:59] VITALS: PULSE 54; RESP 14; O2SAT 99
--- NOTE | 2021-12-10 11:59 | SUR.PHASEI ---
see paper charting for pacu immediate assessment and pacu scores from [id number].
[2021-12-10 12:10] VITALS: BP 107/62; PULSE 59; RESP 14; TEMP 36.1; O2SAT 100
[2021-12-10 13:14] VITALS: BP 126/66; PULSE 70; RESP 16; TEMP 36.2; O2SAT 96
[2021-12-10] MEDS: HYDROcodone Bitartrate/Apap 5/325 Tablet PO (13:20)
[2021-12-10 14:39] VITALS: BP 113/70; PULSE 75; RESP 14; TEMP 36.3; O2SAT 98
== END 2021-12-10 23:59 | disposition home or self-care (01) ==
LOC: SDC 05:23 → AC 05:24
PROVIDERS: Anesthesiology; PCP Student in an Organized Health Care Education/Training Program; Referring Provider Student in an Organized Health Care Education/Training Program; Visit Provider Student in an Organized Health Care Education/Training Program
PROC: 0UT94ZZ Resection of Uterus, Percutaneous Endoscopic Approach (ICD-10-PCS; CPT 52000; principal; 2021-12-10 07:10)
DX: N93.9 Abnormal uterine and vaginal bleeding, unspecified (principal); D50.0 Iron deficiency anemia secondary to blood loss (chronic); N92.0 Excessive and frequent menstruation with regular cycle; Z90.49 Acquired absence of other specified parts of digestive tract; Z90.89 Acquired absence of other organs; K08.409 Partial loss of teeth, unspecified cause, unspecified class
CPT/HCPCS: 52000; 58571; 36415; 81025; 82962; 83735; 85027; 86850; 86900; 86901; 87635; 88307; 93005; J7120; J2405; U0003; U0005

== ENCOUNTER 2022-01-05 07:50 | Outpatient (CLI) | payer BC, SELFPAY ==
--- NOTE | 2022-01-05 07:53 | BI_ITS ---
MAMMOGRAPHY - BILATERAL SCREENING REASON FOR EXAM: Female, 51 years old. Routine annual screening examination. PERTINENT HISTORY: Aunt with breast cancer. TECHNIQUE: Digital bilateral breast chun (3D mammographic acquisition) in the CC and MLO projections. 2-D mediolateral oblique (MLO) and craniocaudad (CC) views of both breasts were obtained. CAD: Full Field Digital Mammography with Computer Added Detection was performed. COMPARISON: Comparison is made with prior study dated 12/12/2020 and 01/10/2019. FINDINGS: Breast Composition: The breasts are heterogeneously dense, which may obscure small masses. There are no dominant masses or suspicious calcifications. Stable benign-appearing bilateral axillary lymph nodes. No other significant abnormalities are identified. There has been no significant change since the prior study. BI/SCRN MAMM (CAD)W/CHUN BILAT IMPRESSION: Stable bilateral screening mammogram. Yearly follow-up mammogram recommended. (A) ASSESSMENT CATEGORY: BIRADS Category 2: Benign. A letter regarding these results will be sent to the patient by the facility within 30 days. Approximately 10% of breast cancers are not detected by mammography. A normal mammogram should not delay biopsy of a clinically suspicious abnormality. [id number] Electronically Signed: Ashvin Galdamez MD at 9:03 EDT ,
== END 2022-01-05 23:59 | disposition home or self-care (01) ==
LOC: OPBI 07:51
PROVIDERS: PCP Student in an Organized Health Care Education/Training Program; Visit Provider Student in an Organized Health Care Education/Training Program
DX: Z12.31 Encounter for screening mammogram for malignant neoplasm of breast (principal); Z80.3 Family history of malignant neoplasm of breast
CPT/HCPCS: 77063; 77067

== ENCOUNTER 2022-07-01 08:55 | Emergency (ER) | payer BC, SELFPAY ==
[2022-07-01 08:56] VITALS: BP 137/88; PULSE 74; RESP 18; TEMP 36.6; O2SAT 98; BMI 33.6
--- NOTE | 2022-07-01 09:17 | EDS_ITS ---
HPI History of Present Illness Chief Complaint: Dizziness Narrative Narrative: 51-year-old female presents with her because of dizziness, nausea, and vomiting that she is experienced since yesterday. She states she awoke from sleep yesterday morning at 6 AM and when she went to stand up/get out of bed she became very dizzy. She describes vertigo symptoms that are worse with standing and movement. It went away, after approximately an hour that she was able to login to her computer and work at home. However, at 2:00 this morning, approximately 7 hours ago, she states that it returned with a vengeance. She denies any paresthesias, no headache but states that she feels dizzy as if the room is spinning. She vomited 2 times without any blood in her emesis. She denies any chest pain or lightheadedness. No shortness of breath. No other symptoms. Her symptoms are worse with movement and standing. She states that the car ride and taking a curve while in the car made it worse. [facility] Medical History Alcohol use Anemia Back pain Blackout Migraine headache Non-smoker Restless legs Shortness of breath on exertion Home Medications magnesium 250 mg tablet 250 mg PO BID SUPPLEMENT 12/28/18 [History Last Taken 12/28/18] ascorbic acid (vitamin C) 500 mg capsule,extended release (Vitamin C) 500 mg PO BID 09/16/21 [History Last Taken Unknown] pediatric multivit no.17-ferrous fumarate 15 mg iron chewable tablet 1 tab PO DAILY 09/16/21 [History Last Taken Unknown] oxycodone 5 mg tablet 5 mg PO Q6H PRN pain (scale score 7-10) 5 days #24 tabs 12/10/21 [Rx Last Taken Unknown] meclizine 25 mg tablet 25 mg PO TID PRN dizziness #20 tabs 07/01/22 [Rx Last Taken Unknown] Allergy/AdvReac Type Severity Reaction Status Date / Time azithromycin AdvReac Other Verified 07/01/22 08:58 cefdinir AdvReac Other Verified 07/01/22 08:58 cephalexin [From Keflex] AdvReac Other Verified 07/01/22 08:58 Surgical History History of hysteroscopy History of tonsillectomy and adenoidectomy Hx of appendectomy Hx of wisdom tooth extraction Social History Smoking Status: Never smoker substance use type: does not use ROS ROS ED ROS Narrative Constitutional: No fever, no chills. HEENT: No sore throat. No neck pain. No loss of vision. No rhinorrhea. Cardiovascular: No chest pain. No palpitations. No pedal edema. Respiratory: No cough, no shortness of breath. Abdominal: No abdominal pain. Positive nausea. 2 episodes of nonbloody vomiting. Genitourinary: No dysuria. No hematuria. Musculoskeletal: No myalgias. No arthralgias. Neurologic: No headaches. Positive dizziness. No lightheadedness. Skin: No rash. No change in color. Psychiatric: No depression. No anxiety. EXAM Physical Exam Narrative Exam Narrative: Afebrile. Vital signs noted. HEENT: Normocephalic. Atraumatic. PERRL, EOMI. Neck soft and supple. No point tenderness or step off. Cardiovascular: Regular rate and rhythm. No murmurs, rubs, or gallops appreciated. Respiratory: No tachypnea. Lungs clear to auscultation bilaterally. Gastrointestinal: Abdomen soft, nontender, with normoactive bowel sounds. No rebound or guarding. Neurological: Awake. Alert. Oriented x3. Nonfocal, nonlateralizing. DTRs equal and symmetric. Fatigable nystagmus bilaterally. Skin: No rash. Normal color. No pallor. Musculoskeletal: No pedal edema. Full range of motion extremities. Const Vital Signs: 07/01/22 08:56 07/01/22 09:11 07/01/22 11:27 Temperature 98 F Temperature Source Temporal Pulse Rate 74 66 Respiratory Rate 18 13 Respiratory Effort Normal Non-Labored Blood Pressure 137/88 H 149/77 H Blood Pressure Mean 104 101 Pulse Ox 98 99 Oxygen Delivery Method Room Air Room Air MDM MDM MDM Narrative Medical decision making narrative: I do feel that this may be more benign positional vertigo. However, as the first time this is ever happened to the patient I do feel that CT imaging is indicated along with basic laboratory work. She was bolused normal saline 1 L intravenously. CBC is grossly normal with a normal white count and normal hemoglobin of 14.3. CMP shows mild hypokalemia 3.2 which was replaced orally. Magnesium is normal at 2.2. LFTs are normal. CT of the brain shows no acute process, no hemorrhage or mass. She was administered meclizine. There has been no vomiting in the emergency department. She is mildly improved and was able to ambulate. At this point in time, I feel she be discharged safely home with follow-up to her primary care physician. She is given a prescription for meclizine 20 tablets to take up to 3 times a day for her dizziness which I think may be more of a benign positional vertigo. Return instructions to the emergency department were reviewed. Disposition is discharged home in stable condition. Lab Data Attestation: I reviewed the patient's lab results. Labs: Laboratory Results - last 24 hr 07/01/22 07/01/22 09:30 09:30 WBC 7.5 RBC 4.75 Hgb 14.3 Hct 42.4 MCV 89.3 MCH 30.1 MCHC 33.7 RDW Std Deviation 38.8 RDW Coeff of Tom 11.9 Plt Count 193 MPV 9.4 Immature Gran % (Auto) 0.400 Neut % (Auto) 70.3 H Lymph % (Auto) 22.3 [place] % (Auto) 5.0 Eos % (Auto) 1.3 Baso % (Auto) 0.7 Absolute Neuts (auto) 5.2 Absolute Lymphs (auto) 1.66 Nucleated RBC % 0 Sodium 141 Potassium 3.2 L Chloride 106 Carbon Dioxide 29.0 Anion Gap 6 BUN 11 Creatinine 0.97 Estim Creat Clear Calc 56.12 Est GFR (MDRD) Af Amer 78 Est GFR (MDRD) Non-Af 64 BUN/Creatinine Ratio 11.4 Glucose 135 H Calcium 8.7 Magnesium 2.2 Total Bilirubin 0.40 AST 15 ALT 27 Alkaline Phosphatase 77 Total Protein 7.1 Albumin 3.5 Globulin 3.6 Albumin/Globulin Ratio 1.0 Radiography Diagnostic Testing: Clinical Impression(s) from Imaging Studies Brain CT 07/01/22 10:04 IMPRESSION: Normal unenhanced CT scan of the brain. Electronically Signed: Alverto Estrada MD at 10:18 EDT , Discharge Plan Triage Chief Complaint: Dizziness ED Provider: Jorje Trinh Dx/Rx/DC Orders Clinical Impression: Vertigo, Dizziness, Hypokalemia Prescriptions: New meclizine 25 mg tablet 25 mg PO TID PRN (Reason: dizziness) Qty: 20 0RF No Action magnesium 250 MG tablet 250 mg PO BID ascorbic acid (vitamin C) [Vitamin C] 500 mg Capsule, Extended Release 500 mg PO BID pedi multivit 17-iron fumarate 15 mg iron Tablet,Chewable 1 tab PO DAILY oxycodone 5 mg tablet 5 mg PO Q6H PRN (Reason: pain (scale score 7-10)) 5 Days Qty: 24 0RF Primary Care Provider: Brien Romero Referrals: Brien Romero DO [Primary Care Provider] - 3-5 Days if not improving Disposition Disposition: Home, Self Care
[2022-07-01] MEDS: 0.9% Normal Saline 1,000 ML 1000 ML IV (09:35)
[2022-07-01 09:40] LABS: Absolute Lymphocyte Count 1.66 X10^3/uL (0.83-4.51); Absolute Neutrophil Count 5.2 X10^3/uL (2.0-7.7); Basophil# 0.05 X10^3/uL; Basophil% 0.7 % (0-1); Eosinophils% 1.3 % (0-5); Hematocrit 42.4 % (37-47); Hemoglobin 14.3 g/dL (12.0-15.0); Lymphocyte # 1.66 X10^3/ul (0.83-4.51); Lymphocyte % 22.3 % (19-41); Mean Corp Hgb Conc 33.7 g/dL (32-36); Mean Corpuscular Hgb 30.1 pg (27.0-32.0); Mean Corpuscular Volume 89.3 fL (81-99); Mean Platelet Vol. 9.4 fl (6.2-12.0); Monocyte# 0.37 X10^3/uL; NRBC Flagged by Analyzer 0 % (0-5); Neutrophil # 5.24 X10^3/uL (2.7-7.7); Neutrophil % 70.3 % (47-70); Platelet Count 193 K/mm3 (150-450); RBC Distribution Width CV 11.9 % (11.6-14.6); RBC Distribution Width SD 38.8 fl (35.1-43.9); Red Blood Count 4.75 M/mm3 (4.2-5.4); White Blood Count 7.5 K/mm3 (4.4-11.0)
[2022-07-01 09:56] LABS: AST(SGOT) 15 U/L (15-37); Alanine Aminotransfer ALT/SGPT 27 U/L (13-56); Albumin, Serum 3.5 g/dL (3.2-5.0); Alkaline Phosphatase 77 U/L (45-117); Anion Gap 6 (5-15); BUN 11 mg/dL (7-18); BUN/Creat Ratio 11.4 RATIO (10-20); Calcium,Total 8.7 mg/dL (8.5-10.1); Chloride 106 mmol/L (98-107); Creatinine, Serum 0.97 mg/dL (0.55-1.02); EST Glomerular Filtration Rate 64 mL/min (>60); Est Glom Filt Rate - Afr Amer 78 mL/min (>60); Estimated Creatinine Clearance 56.12 ml/min; Globulin 3.6 g/dL (2.2-4.2); Glucose 135 mg/dL (74-106); Magnesium 2.2 mg/dL (1.6-2.6); Potassium 3.2 mmol/L (3.5-5.1); Protein, Total 7.1 g/dL (6.4-8.2); Sodium Level 141 mmol/L (136-145)
--- NOTE | 2022-07-01 10:04 | CT_ITS ---
STUDY: CT BRAIN WITHOUT CONTRAST REASON FOR EXAM: Female, 51 years old. Dizziness RADIATION DOSAGE (If Supplied By Facility): CTDIvol = ( 44.99 ) mGy, DLP = ( 796.11 ) mGycm TECHNIQUE: Transaxial CT imaging of the brain was performed without administration of intravenous contrast material. Individualized dose optimization techniques were used for this CT. COMPARISON: 2008 FINDINGS: Normal soft tissue structures. Normal calvarium. Normal size ventricles and extra-axial spaces for the patient''s age. Normal white matter tracts of the cerebral hemispheres. Normal basal ganglia and thalami. Normal brainstem. Normal cerebellum. There is no intracranial hemorrhage. There are no findings of an acute ischemic infarction. Normal visualized paranasal sinuses. CT/Brain/Head without Contrast IMPRESSION: Normal unenhanced CT scan of the brain. Electronically Signed: Alverto Estrada MD at 10:18 EDT ,
[2022-07-01 11:27] VITALS: BP 149/77; PULSE 66; RESP 13; O2SAT 99
[2022-07-01] MEDS: Meclizine HCl 25 MG Tablet PO (12:05)
[2022-07-01] MEDS: Potassium Chloride Oral Tablet 20 MEQ 40 MEQ PO (12:13)
[2022-07-01 13:34] VITALS: BP 158/87; PULSE 70; RESP 18; O2SAT 100
== END 2022-07-01 13:44 | disposition home or self-care (01) ==
PROVIDERS: Emergency Provider Emergency Medicine; PCP Student in an Organized Health Care Education/Training Program; Visit Provider Emergency Medicine
DX: R42 Dizziness and giddiness (principal); E87.6 Hypokalemia; R11.2 Nausea with vomiting, unspecified
CPT/HCPCS: 70450; 80053; 83735; 85025; 96360; 99284; J7030; A4216

== ENCOUNTER 2022-12-17 21:42 | Emergency (ER) | payer BC, SELFPAY ==
[2022-12-17 21:43] VITALS: BP 164/88; PULSE 81; RESP 18; TEMP 36.4; O2SAT 99; BMI 35.0
--- NOTE | 2022-12-17 22:22 | US_ITS ---
STUDY: ULTRASOUND TRANSVAGINAL CLINICAL: Female, 52 years old. Left pelvic pain for one month. Pain is worsened and become constant last few hours. History of hysterectomy one year ago. TECHNIQUE: Transvaginal COMPARISON: None. FINDINGS: Uterus is surgically absent. Normal right ovary, measuring 2.9 x 2.7 x 3.7 cm. There are 2 adjacent cysts versus a larger septated cyst measuring 2.6 x 1.8 x 1.9 cm and 2.3 x 2.1 x 1.7 cm. Normal vascularity on Doppler imaging. Normal left ovary, measuring 5.8 x 5.7 x 5.7 cm. There is a large complex cystic and solid mass measuring 4.3 x 4.3 x 4.4 cm. Question hemorrhagic cyst or endometrioma. There is no free fluid in the pelvis. Polycystic ovary disease: No. US/Transvaginal Non- IMPRESSION: 1. Status post hysterectomy. 2. 2 adjacent cysts versus a larger septated cyst in the right ovary. 3. Large complex left ovarian cyst. Electronically Signed: Chris Johnson DO at 23:26 EST ,
--- NOTE | 2022-12-17 22:23 | EDS_ITS ---
HPI HPI - GI History of Present Illness Chief Complaint: Abd Pain Informant: patient Abdominal Pain/Flank Pain Onset: Hours (3) Context: Sudden Onset Timing: Continuous and Waxes and wanes Quality: Aching Location: LLQ Current Severity: Severe Maximum Severity: Severe Worsened by: Nothing Relieved by: Nothing Nausea/Vomiting/Emesis GI Symptom: Negative for Nausea or Vomiting Diarrhea/Melena/Hematochezia GI Symptom: Positive for - (Has had good bowel movement today, unremarkable); Negative for Diarrhea, Melena or Hematochezia Associated Symptoms Associated Symptoms: Negative for Dysuria, Frequency, Hematuria or Urgency Narrative Narrative: Patient presents for moderate-severe left pelvic pain that has been persistent for the past 3 hours despite taking ibuprofen and using a heating pad. In the past months she has had random episodes of the same pain, but typically only last for 30 minutes because taking ibuprofen and applying a heating pad makes it resolve. Tonight it is radiating into her left low back which is new as well. She denies any other new symptoms. No fevers or chills, urinary symptoms, nausea, vomiting, diarrhea, vaginal discharge or bleeding. She has a history of a hysterectomy. She has not been having menstrual cycles for the past year or so. Saw her STRATEGIC PLANNING ANALYST as an outpatient for this pain, she had a pelvic exam that she was told was unremarkable, and is scheduled for an outpatient ultrasound which she has not had yet. Has not had any other imaging of this yet either. [facility] Medical History Alcohol use Anemia Back pain Blackout Migraine headache Non-smoker Restless legs Shortness of breath on exertion Home Medications magnesium 250 mg tablet 250 mg PO BID SUPPLEMENT 12/28/18 [History Last Taken 12/28/18] ascorbic acid (vitamin C) 500 mg capsule,extended release (Vitamin C) 500 mg PO BID 09/16/21 [History Last Taken Unknown] pediatric multivit no.17-ferrous fumarate 15 mg iron chewable tablet 1 tab PO DAILY 09/16/21 [History Last Taken Unknown] oxycodone 5 mg tablet 5 mg PO Q6H PRN pain (scale score 7-10) 5 days #24 tabs 12/10/21 [Rx Last Taken Unknown] meclizine 25 mg tablet 25 mg PO TID PRN dizziness #20 tabs 07/01/22 [Rx Last Taken Unknown] oxycodone-acetaminophen 5 mg-325 mg tablet 1 tab PO Q6H PRN PRN Pain 3 days #12 TABLETS 12/18/22 [Rx Last Taken Unknown] Allergy/AdvReac Type Severity Reaction Status Date / Time azithromycin AdvReac Other Verified 12/17/22 21:45 cefdinir AdvReac Other Verified 12/17/22 21:45 cephalexin [From Keflex] AdvReac Other Verified 12/17/22 21:45 Surgical History History of hysteroscopy History of tonsillectomy and adenoidectomy Hx of appendectomy Hx of wisdom tooth extraction Social History Smoking Status: Never smoker substance use type: does not use ROS ROS ED Constitutional Constitutional ED: Denies chills or fever(s) Eyes Eyes: Denies change in vision or diplopia ENT ENT ED: Denies rhinorrhea or sore throat Cardiovascular Cardiovascular: Denies chest pain or palpitations Respiratory/Chest Respiratory/Chest: Denies cough or dyspnea Gastrointestinal Gastrointestinal: Reports abdominal pain; Denies diarrhea, nausea or vomiting Genitourinary Genitourinary ED: Denies dysuria or hematuria Musculoskeletal Musculoskeletal: Reports back pain; Denies neck pain Integumentary Denies abscess or rash Neurologic Neurologic: Denies headache(s), paresthesias or weakness Psychiatric Psychiatric: Denies anxiety or suicidal thoughts EXAM Physical Exam Const Vital Signs: 12/17/22 21:43 Temperature 97.6 F L Temperature Source Temporal Pulse Rate 81 Respiratory Rate 18 Blood Pressure 164/88 H Blood Pressure Mean 113 Pulse Ox 99 Oxygen Delivery Method Room Air Positive well nourished and well developed Constitutional Narrative: Uncomfortable but in no distress, holding her left pelvis. General Appearance ED: well developed and NAD HEENT Reports moist mucous membranes normocephalic and atraumatic Eyes PERRL and EOMs intact bilaterally Neck full ROM and supple Resp normal respiratory effort and clear to auscultation bilaterally Cardio regular rate, regular rhythm and no murmurs GI non-distended GI Narrative: Moderate-severe tenderness without guarding or rebound in the left pelvis. Lateral to this in the lateral left lower quadrant patient is nontender. Nontender on the right lower quadrant and right pelvis although it makes the pain on the left worse. Auscultation: normoactive bowel sounds Palpation: soft Back/Spine no CVA tenderness General Back: other FROM Extremity normal to inspection General Extremety ED: Negative for edema, pulses abnormal or tenderness General Extremity: Negative for edema or pulses abnormal Neuro oriented x3, CN's II-XII intact bilaterally and no sensory deficits noted Sensorium / Orientation: awake and alert Motor Exam: strength 5/5 throughout Skin no rashes or lesions noted and no wounds MDM MDM MDM Narrative Medical decision making narrative: Patient was treated with morphine which did help quite a bit, and she was sent for an ultrasound given that her pain seems to be low in the pelvis and more likely ovarian in my judgment. The ultrasound shows good blood flow to both ovaries, as well as a approximately 4.5 cm cystic versus solid or both mass on the left ovary. I did discuss with Dr. Johnson, the radiologist, since his initial dictation did not discuss blood flow to the left ovary, but he confirmed that there is good blood flow radiographically on the ultrasound. On reexamination, patient is doing much better, no guarding or rebound on her abdomen, I discussed with Dr. Broderick Tai covering for her fire code inspector Dr. Ofelia Tai, he agrees with discharging the patient home to follow-up after the weekend, I will prescribe her some analgesic to use in the meantime as needed. She is comfortable that overall plan and will follow-up. Lab Data Attestation: I reviewed the patient's lab results. Labs: Laboratory Results - last 24 hr 12/17/22 12/17/22 12/17/22 22:24 22:30 22:30 WBC 12.0 H RBC 4.48 Hgb 13.7 Hct 39.2 MCV 87.5 MCH 30.6 MCHC 34.9 RDW Std Deviation 38.6 RDW Coeff of Tom 12.2 Plt Count 201 MPV 9.5 Immature Gran % (Auto) 0.300 Neut % (Auto) 63.0 Lymph % (Auto) 27.9 [place] % (Auto) 6.4 Eos % (Auto) 2.0 Baso % (Auto) 0.4 Absolute Neuts (auto) 7.6 Absolute Lymphs (auto) 3.36 Nucleated RBC % 0 Sodium 140 Potassium 3.1 L Chloride 106 Carbon Dioxide 30.0 Anion Gap 4 L BUN 10 Creatinine 0.73 Estim Creat Clear Calc 73.72 Est GFR (MDRD) Af Amer 107 Est GFR (MDRD) Non-Af 88 BUN/Creatinine Ratio 13.6 Glucose 112 H Calcium 8.9 Urine Color Yellow Urine Clarity Clear Urine pH 7.0 Ur Specific [place] 1.010 Urine Protein Negative Urine Glucose (UA) Normal Urine Ketones Negative Urine Occult Blood Negative Urine Nitrite Negative Urine Bilirubin Negative Urine Urobilinogen Normal Ur Leukocyte Esterase Negative Urine RBC 0 SEEN Urine WBC 0 SEEN Ur Squamous Epith Cells 0-5 SEEN Urine Bacteria 0 SEEN Urine Mucus 0 SEEN Radiography Diagnostic Testing: Clinical Impression(s) from Imaging Studies Transvaginal US 12/17/22 22:22 IMPRESSION: 1. Status post hysterectomy. 2. 2 adjacent cysts versus a larger septated cyst in the right ovary. 3. Large complex left ovarian cyst. Electronically Signed: Chris Johnson DO at 23:26 EST Reading Location ID and State: [address] [place] [address] Tel [phone], Service support , ADDENDUM: 12/18/22 0003 IMPRESSION: undefined I reviewed ultrasound images. I reviewed the interpretation of the radiologist and I agree with it. Discharge Plan Triage Chief Complaint: Abd Pain ED Provider: Alexis Mcarthur Dx/Rx/DC Orders Clinical Impression: Acute pain in female pelvis, Mass of left ovary Instructions: ED Pelvic Pain, Unknown Cause Prescriptions: New oxycodone-acetaminophen [oxycodone-acetaminophen] 5-325 mg tablet 1 tab PO Q6H PRN PRN (Reason: Pain) 3 Days Qty: 12 0RF No Action magnesium 250 MG tablet 250 mg PO BID ascorbic acid (vitamin C) [Vitamin C] 500 mg Capsule, Extended Release 500 mg PO BID pedi multivit 17-iron fumarate 15 mg iron Tablet,Chewable 1 tab PO DAILY oxycodone 5 mg tablet 5 mg PO Q6H PRN (Reason: pain (scale score 7-10)) 5 Days Qty: 24 0RF meclizine 25 mg tablet 25 mg PO TID PRN (Reason: dizziness) Qty: 20 0RF Primary Care Provider: Brien Romero Referrals: Ofelia Tai DO [Med Staff - Active Staff] - As soon as possible Brien Romero DO [Primary Care Provider] - Disposition Disposition: Home, Self Care
[2022-12-17] MEDS: Morphine 4 MG/ML Syringe IV (22:34)
[2022-12-17 22:35] LABS: Bacteria 0 SEEN /hpf (None Seen); Mucous, Urine 0 SEEN /hpf (<or=2+); Red Blood Cells-Urine 0 SEEN /hpf (0-5); White Blood Cells 0 SEEN /hpf (0-5)
[2022-12-17 22:36] LABS: Absolute Lymphocyte Count 3.36 X10^3/uL (0.83-4.51); Absolute Neutrophil Count 7.6 X10^3/uL (2.0-7.7); Basophil# 0.05 X10^3/uL; Basophil% 0.4 % (0-1); Eosinophil# 0.24 X10^3/uL; Hematocrit 39.2 % (37-47); Hemoglobin 13.7 g/dL (12.0-15.0); Lymphocyte # 3.36 X10^3/ul (0.83-4.51); Lymphocyte % 27.9 % (19-41); Mean Corp Hgb Conc 34.9 g/dL (32-36); Mean Corpuscular Hgb 30.6 pg (27.0-32.0); Mean Corpuscular Volume 87.5 fL (81-99); Mean Platelet Vol. 9.5 fl (6.2-12.0); Monocyte# 0.77 X10^3/uL; Monocyte% 6.4 % (0-10); NRBC Flagged by Analyzer 0 % (0-5); Neutrophil # 7.58 X10^3/uL (2.7-7.7); Platelet Count 201 K/mm3 (150-450); RBC Distribution Width CV 12.2 % (11.6-14.6); RBC Distribution Width SD 38.6 fl (35.1-43.9); Red Blood Count 4.48 M/mm3 (4.2-5.4)
[2022-12-17 22:45] LABS: Color, Urine Yellow (Yellow); Glucose, Dipstick Normal (Normal); Ketone-Dipstick Negative (Negative); Leukocyte Esterase-Dipstick Negative /ul (Negative); Nitrite-Dipstick Negative (Negative); Occult Blood-Urine Negative /ul (Negative); Protein-Dipstick Negative (Negative); Urine Bilirubin Dipstick Negative (Negative); Urine Clarity Clear (Clear); Urine Urobilinogen Normal (Normal)
[2022-12-17 22:54] LABS: Squamous Epithelial Cells - UA 0-5 SEEN /hpf (5-10)
[2022-12-17 22:55] LABS: Anion Gap 4 (5-15); BUN 10 mg/dL (7-18); BUN/Creat Ratio 13.6 RATIO (10-20); Calcium,Total 8.9 mg/dL (8.5-10.1); Chloride 106 mmol/L (98-107); Creatinine, Serum 0.73 mg/dL (0.55-1.02); EST Glomerular Filtration Rate 88 mL/min (>60); Est Glom Filt Rate - Afr Amer 107 mL/min (>60); Estimated Creatinine Clearance 73.72 ml/min; Glucose 112 mg/dL (74-106); Potassium 3.1 mmol/L (3.5-5.1); Sodium Level 140 mmol/L (136-145)
[2022-12-18 00:47] VITALS: PULSE 81; RESP 18; O2SAT 96
== END 2022-12-18 01:02 | disposition home or self-care (01) ==
PROVIDERS: Emergency Provider Emergency Medicine; PCP Student in an Organized Health Care Education/Training Program; Visit Provider Emergency Medicine
DX: N83.8 Other noninflammatory disorders of ovary, fallopian tube and broad ligament (principal); R10.2 Pelvic and perineal pain
CPT/HCPCS: 76830; 80048; 81001; 85025; 93976; 99284; A4216

== ENCOUNTER 2022-12-22 11:32 | Day surgery (SDC) | payer BC, SELFPAY ==
[2022-12-22] VITALS (10 sets, daily range): BP systolic 121–148; BP diastolic 71–89; PULSE 64–99; RESP 16–18; TEMP 36.1–37.1; O2SAT 89–100; BMI 34.7
--- NOTE | 2022-12-22 11:52 | PCM.HP.BLA ---
History and Physical Date of Admission: 12/22/22 HPI: 52-year-old female with pelvic pain and ovarian cyst. Plan for bilateral laparoscopic oophorectomy. Reports pelvic pain. Denies headache or vision changes, chest pain or shortness of breath, nausea or vomiting, diarrhea constipation, fevers or chills. [employer]ILE [employer] history: Medical history: Denies Surgical history: 1. Tonsillectomy 1979 2. Appendectomy 3. Hysterectomy, bilateral salpingectomy, cystoscopy in 2021 Medications: Magnesium, vitamin C, multivitamin Allergies: 1. Azithromycin 2. Cephalosporins Social history: Former tobacco user, denies alcohol or drug use Family history: Noncontributory Review of system negative otherwise stated above Physical exam: Vitals pending General: No acute distress HEENT: Normal cephalic/atraumatic, PERRLA Cardiorespiratory: No increased effort Abdomen: Soft, nontender, nondistended no rebound or guarding Extremities: No edema Neurologic: Cranial nerves II through XII grossly intact Musculoskeletal: Strength 5 out of 5 throughout extremities Assessment/plan: 52-year-old female with pelvic pain and ovarian cyst, planned for bilateral laparoscopic oophorectomy. All risk, benefits, alternatives discussed with the patient. Risk include but are not limited to: Risk of bleeding the point of transfusion, infection, injury to surrounding tissue including bowel/bladder/major abdominal vessels, VTE, ICU admission. Patient aware that she may have some increase in menopausal symptoms after oophorectomy. Consented.
--- NOTE | 2022-12-22 12:09 | PCM.OPRPT ---
Problems Associated Problem List Diagnoses (1) Other acute postprocedural pain: Report of Operation Date of Procedure: 12/22/22 Pre-Operative Diagnosis: Pelvic pain, ovarian cysts Post-Operative Diagnosis: Pelvic pain, ovarian cysts, endometrioma, extensive adhesions Surgery/Procedure Performed:: Diagnostic laparoscopy, lysis of adhesions Description of Surgical Findings:: Normal-appearing external genitalia. Simple appearing right ovarian cyst, enlarged ovary. Enlarged left ovary with extensive bowel adhesions to the medial side of the ovary. Ovary adhered to the vaginal cuff and area of the bladder. Left ovary adherent to the pelvic sidewall, no delineation of the plane between the ovary and pelvic sidewall could be discerned. Incidental drainage of left ovarian cyst during lysis of adhesions consistent with endometrioma. Type of Anesthesia: General Specimen's removed: None Estimated Blood Loss (mL): 20cc Fluids Replaced: 1200cc Description of Procedure: Indication/risk/benefits: This is a 52-year-old female with pelvic pain and bilateral ovarian cysts plan for laparoscopic bilateral oophorectomy. All risk, benefits, alternatives discussed with patient. Risk include but are not limited to: Risk of bleeding to the point of transfusion, infection, injury to surrounding tissue including bowel/bladder potentially requiring prolonged Tate catheter use/major abdominal vessels. Patient aware and consented. Procedure: Patient taken to the operating room and placed under general anesthesia. Patient placed in the dorsolithotomy position prepped and draped in usual sterile fashion. Sponge stick placed in the vagina Tate catheter placed. 5 mm transverse skin incision made infraumbilically. Trocar placed under direct visualization. Abdomen insufflated. Inspection of the abdominal cavity noted findings stated above. Due to extensive adhesions, Dr. Anderson was called to assess and assist with lysis of adhesions. See his dictation for details. After lysis of adhesions, decision not to do left oophorectomy was made due to extension to the left pelvic sidewall. Right ovary was not removed at this time because patient would have required larger trocar incision, which could cause more discomfort, and because she will require follow-up with subspecialist for removal of left ovary, and pain is located to patient's left side. Therefore decision for both ovaries to be removed at the same time was made. Pelvis was suction irrigated. Some oozing was noted along the dissection bed of the adhesions. Kelley placed. Hemostasis confirmed. Abdomen desufflated and trocars removed. Skin closed with subcuticular stitch and skin glue. Tate catheter and sponge stick removed. At the end of the procedure all needle, lap, sponge counts were correct. UOP: 150cc clear urine Complications None
--- NOTE | 2022-12-22 12:10 | DCINST_ITS ---
Discharge Instructions Diet Discharge Diet: No restrictions Activity Discharge Activity: Return to Normal Activity and May Shower May resume sexual activity in: 2 weeks Weight Bearing Status: Weight bearing as tolerated Lifting Restrictions: No greater than 15 pounds Dressing / Incision Call your doctor if your incision/area has: Continuous Slow Oozing, Increased Pain/ Swelling, Increased Redness and Foul Smelling Discharge Call your doctor if you observe: Fever of 101 or Higher, Inability to urinate, Using more than 1 pad per hour, Shortness of breath, Chest pain, Calf discomfort and Uncontrolled pain Cleanse incision/area with: Soap & Water and Keep Dressing Clean & Dry Follow Up Care Please Follow Up With: Ofelia Tai DO When: 2 weeks post operative visit. Test Results: Test results from this visit will be discussed in further detail at your follow- up appointment, if applicable. Discharge Plan Admission Primary Reason for Your Visit: Laparoscopy Attending Provider: Ofelia Tai Primary Care Provider: Brien Romero Discharge Orders/Prescriptions Prescriptions: New oxycodone 5 mg tablet 5 mg PO Q6H PRN (Reason: pain (scale score 7-10)) 4 Days Qty: 16 0RF Continued magnesium 250 MG tablet 250 mg PO BID ascorbic acid (vitamin C) [Vitamin C] 500 mg Capsule, Extended Release 500 mg PO BID pedi multivit 17-iron fumarate 15 mg iron Tablet,Chewable 1 tab PO DAILY Discontinued oxycodone 5 mg tablet 5 mg PO Q6H PRN (Reason: pain (scale score 7-10)) 5 Days Qty: 24 0RF Referrals / Follow Up: Brien Romero DO [Primary Care Provider] - Disposition Disposition (needs filled in before D/C Order can be placed): Home, Self Care
[2022-12-22 12:27] LABS: Internal QC Validated? YES +Cl - CLEAR BKGD; Pregnancy, Urine Negative Negative
--- NOTE | 2022-12-22 12:32 | EKG12_ITS ---
Test Reason : PRE OP Blood Pressure : / mmHG Vent. Rate : 064 BPM Atrial Rate : 064 BPM P-R Int : 178 ms QRS Dur : 090 ms QT Int : 430 ms P-R-T Axes : 056 -01 022 degrees QTc Int : 443 ms Normal sinus rhythm Normal ECG When compared with ECG of 07-DEC-2021 10:19, No significant change was found Confirmed by JEREMÍAS SAXENA, FRANK ([id number]), international editorial producer DELMY BAIRES ([id number]) on 12/28/2022 8:47:51 AM Referred By: Ofelia Tai Confirmed By:FRANK VERONICA MD
[2022-12-22 12:47] LABS: Hemoglobin 13.7 g/dL (12.0-15.0); Mean Corp Hgb Conc 34.3 g/dL (32-36); Mean Corpuscular Hgb 30.2 pg (27.0-32.0); Mean Corpuscular Volume 88.1 fL (81-99); Mean Platelet Vol. 9.4 fl (6.2-12.0); Platelet Count 179 K/mm3 (150-450); RBC Distribution Width CV 12.2 % (11.6-14.6); RBC Distribution Width SD 38.8 fl (35.1-43.9); Red Blood Count 4.54 M/mm3 (4.2-5.4); White Blood Count 8.8 K/mm3 (4.4-11.0)
[2022-12-22] MEDS: Lactated Ringers 1,000 ML 125 ML IV (12:48)
--- NOTE | 2022-12-22 16:24 | PCM.OPRPT ---
Report of Operation Date of Procedure: 12/22/22 Pre-Operative Diagnosis: Pelvic pain and ovarian cysts Post-Operative Diagnosis: 1. Pelvic pain and ovarian cyst 2. Dense adhesions between left adnexa and sigmoid colon Surgery/Procedure Performed:: Laparoscopic enterolysis Description of Surgical Findings:: Dense adhesions between the rectosigmoid colon and the left ovary/cyst as well as ingrowth to the pelvic sidewall of the latter Surgeon: Andrea Anderson associate professor of engineering: Yazmin Tafoya Type of Anesthesia: General/Supplemental Specimen's removed: NA Estimated Blood Loss (mL): 10 Description of Procedure: This represents an intraoperative consultation from Dr. Tai of [employer]. I was notified that [employer] had encountered adhesions between bowel and the left ovary/cyst. At time of my presentation the patient was already induced with a general anesthetic and 3 ports were placed in the upper abdomen. Brief inspection revealed the rectosigmoid colon was densely adherent to the left ovary and cyst. Using a combination of limited bipolar energy from the laparoscopic LigaSure and blunt dissection with the laparoscopic suction hand meat salter, I developed a plane between the 2 structures. As this dissection proceeded, I used epiploic fat for the colon to provide traction and avoid injury to the colon and kept aware for the left ureter as we crossed the pelvic brim, however, I believed we were sufficiently lateral to the presumed course of the ureter. Eventually I was able to completely separate the sigmoid colon and rectum from the left ovarian cyst, but in doing so I did inadvertently rupture the cyst with my blunt dissection and therefore aspirated the cyst contents free of the peritoneum to contain any contamination. Once these adhesions were disrupted and the plane established, I turned the case back over to Dr. Tai. Please see her dictation for complete operative details. Admit VTE Documentation VTE Mechan Device Prophylaxis: SCD's Procedures Digestive 40xxx-49xxx: 86609 Lap enterolysis
[2022-12-22] MEDS: Ketorolac 30 MG/ML Syringe IV (16:52)
[2022-12-22] MEDS: Acetaminophen 500 MG Tablet 1000 MG PO (18:22)
[2022-12-22] MEDS: oxyCODONE 5 MG Tablet PO (18:22)
== END 2022-12-22 18:59 | disposition home or self-care (01) ==
LOC: SDC 11:32 → AC 11:34
PROVIDERS: Anesthesiology; PCP Student in an Organized Health Care Education/Training Program; Referring Provider Student in an Organized Health Care Education/Training Program; Visit Provider Student in an Organized Health Care Education/Training Program
PROC: (CPT 840; principal; 2022-12-22 13:00)
DX: N73.6 Female pelvic peritoneal adhesions (postinfective) (principal); N83.209 Unspecified ovarian cyst, unspecified side; Z87.891 Personal history of nicotine dependence; G89.18 Other acute postprocedural pain; R10.2 Pelvic and perineal pain
CPT/HCPCS: 49322; 00840; 49329; 81025; 85027; 86850; 86900; 86901; 93005; J7120; J2405